=== PATIENT | female | born 1995 | race Caucasian/White ===

== ENCOUNTER 2017-02-25 15:48 | Emergency (ER) | payer OTHER ==
[~2017-02-25 15:48] MED LIST: AMOXICILLIN PO; ARTIFICIAL TEAR1 DRP OS; AUGMENTIN; MICONAZOLE30 GM TP; RONDEC DROPS30 ML PO
[2017-02-27] MEDS ORDERED: CLINDAMYCIN HC300 MG PO (19:50)
[2017-02-27] MEDS ORDERED: HYDROCODON-ACE1 EAC7 PO (19:51)
== END 2017-02-25 17:03 | disposition home or self-care (01) ==
LOC: SED 15:48
DX: L02.212 Cutaneous abscess of back [any part, except buttock and flank] (principal)
CPT/HCPCS: 99283